=== PATIENT | female | born 1965 | race Two or more races ===

== ENCOUNTER → 2023-08-18 | Emergency (ER) | payer BC ==
[~2023-08-18] VITALS: Ht 172.7 cm; Wt 72.6 kg
[~2023-08-18] MED LIST: TETANUS & DIPHTHERIA TOX,ADULT 0.5 ML VIAL IM ONE
== END | disposition home or self-care (01) ==
LOC: ER 21:51
DX: S01.82XA Laceration with foreign body of other part of head, initial encounter (principal); W19.XXXA Unspecified fall, initial encounter; Y93.89 Activity, other specified; Y92.89 Other specified places as the place of occurrence of the external cause; Z88.8 Allergy status to other drugs, medicaments and biological substances